=== PATIENT | female | born 1995 | race Caucasian/White ===

== ENCOUNTER 2016-09-18 19:39 | Emergency (ER) | payer OTHER ==
[~2016-09-18] VITALS: Ht 162.6 cm; Wt 50.8 kg
[2016-09-18] MEDS ORDERED: CELEXA20 MG ORAL (19:49)
[2016-09-18 19:50] VITALS: BP 118/85
[2016-09-18] MEDS ORDERED: KENALOG 0.025%15 GM APPLIC (20:22)
[2016-09-18] MEDS ORDERED: RANITIDINE HCL150 MG ORAL (20:22)
[2016-09-18] MEDS ORDERED: PREDNISONE20 MG ORAL (20:22)
[2016-09-18 20:28] VITALS: BP 121/78
--- NOTE | 2016-09-20 01:07 | Emergency Room Report ---
History of Present Illness General Chief Complaint: Skin Rash/Abscess Source: Patient Present Illness HPI 20-year-old female presents ED complaining of rash times one day. Notes generalized rash to the body but states there is also a rash to her elbows and knees. States that she's had this in the past. She self diagnosed herself with eczema and treated with hydrocortisone cream [id number]. States it is not currently helping. States it is itchy. Denies pain. Took Benadryl with some relief. Denies any known food or drug allergies. No other aggravating or relieving factors. Denies any other associated symptoms Allergies: Coded Allergies: No Known Allergies (Unverified , 09/18/16) Patient History Past Medical History: psych hx Past Surgical History: none Pertinent Family History: none Social History: Denies: alcohol use, drug use, smoking Last Menstrual Period: 08/22/16 Now: No Immunizations: UTD Reviewed Nursing Documentation: PMH: Agreed, PSxH: Agreed Nursing Documentation-PMH History Of Psychiatric Problem: Yes - depression Review of Systems All Other Systems: negative except mentioned in HPI Physical Exam Vital Signs Date Time Temp Pulse Resp B/P Pulse Ox O2 Delivery O2 Flow Rate FiO2 09/18/16 19:42 98.8 76 16 118/85 99 Room Air Sp02 EP Interpretation: reviewed, normal General Appearance: no apparent distress, alert, GCS 15, non-toxic Head: normocephalic Eyes: bilateral eye PERRL, bilateral eye normal inspection ENT: normal ENT inspection Neck: normal inspection Respiratory: normal inspection Cardiovascular #1: normal inspection Gastrointestinal: normal inspection Rectal: deferred Genitourinary: no CVA tenderness Musculoskeletal: normal inspection Neurologic: alert, oriented x3, responsive, motor strength/tone normal, sensory intact, speech normal Psychiatric: judgement/insight normal, memory normal, mood/affect normal, no suicidal/homicidal ideation Skin: rash - ezcematous rash to elbows and knees. urticarial rash noted to chest, hands Lymphatic: normal inspection Medical Decision Making Diagnostic Impression: Primary Impression: Rash ER Course Hospital Course 20-year-old female presents to ED with rash to body, elbows and knees Differential diagnoses include: Cellulitis, dermatitis, insect bite, abscess Clinical course Patient placed on stretcher. After initial history, physical exam reveals a young female in no acute distress. On exam there is a diffuse urticarial rash to the body. There is also an eczematous rash noted elbows and knees Will treat as eczema. Prescribed triamcinolone. Will prescribe steroid course. Zantac. Patient will continue Benadryl. Will followup with dermatology Diagnosis - rash stable and discharged to home with prescription for triamcinolone, prednisone, zantac. continue benedryl. Instructed to followup with dermatology. Instructed return to ED if symptoms recur or worsen Last Vital Signs Date Time Temp Pulse Resp B/P Pulse Ox O2 Delivery O2 Flow Rate FiO2 09/18/16 20:28 98.8 71 16 121/78 99 Room Air Status: improved Disposition: HOME, SELF-CARE Condition: Stable Scripts Ranitidine Hcl* (ZANTAC*) 150 Mg Tablet 150 MG ORAL TWICE A DAY, #30 TAB Prov: GANESH GAMEZ M.D. 09/18/16 Prednisone* (PREDNISONE*) 20 Mg Tablet 40 MG ORAL DAILY, #10 TAB Prov: GANESH GAMEZ M.D. 09/18/16 Triamcinolone Acet (Triamcinolone Acetonide) 15 Gm Cream..g. 15 GM APPLIC BID, #15 GM Prov: GANESH GAMEZ M.D. 09/18/16 Referrals: NOT CHOSEN JIM/,REFERRING (PCP) Patient Instructions: Eczema GANESH GAMEZ M.D. Sep 20, 2016 01:07
== END 2016-09-18 20:28 | disposition home or self-care (01) ==
LOC: EMR 20:20
DX: R21 Rash and other nonspecific skin eruption (principal)
CPT/HCPCS: 99284